=== PATIENT | female | born 1975 | race Caucasian/White ===

== ENCOUNTER 2016-06-14 14:48 | Emergency (ER) | payer OTHER ==
[2016-06-14 15:10] VITALS: BP 108/71
--- NOTE | 2016-06-14 15:46 | UC ---
HPI Wound/Suture Re-check - HPI Summary HPI Summary: Phuc, got 3 zoran in scalp at [facility] 06/03/16. Here for staple removal. - History Of Current Complaint Chief Complaint: UCSkin Stated Complaint: NEEDS ZORAN REMOVED Time Seen by Provider: 06/14/16 15:14 Hx Obtained From: Patient Onset/Duration: Sudden Onset Severity: Mild Surgery Date: 06/03/16 - Allergies/Home Medications Allergies/Adverse Reactions: Allergies Allergy/AdvReac Type Severity Reaction Status Date / Time Cetirizine [From Zyrtec] Allergy Unknown Verified 09/29/15 08:30 Reaction Details Famotidine Allergy Unknown Verified 09/29/15 08:30 Reaction Details Lacosamide [From Vimpat] Allergy Unknown Verified 09/29/15 08:32 Reaction Details Lamotrigine Allergy Unknown Verified 09/29/15 08:30 Reaction Details Lansoprazole Allergy Unknown Verified 09/29/15 08:30 Reaction Details Omeprazole [From Prilosec] Allergy Unknown Verified 09/29/15 08:30 Reaction Details Ranitidine Allergy Unknown Verified 09/29/15 08:30 Reaction Details Sertraline [From Zoloft] Allergy Unknown Verified 09/29/15 08:30 Reaction Details PMH/Surg Hx/FS Hx/Imm Hx Neurological History Of: Reports: Seizures - Surgical History Surgical History: Yes Surgery Procedure, Year, and Place: vagal nerve stimulator x2 - Family History Known Family History: Positive: Unknown - Social History Occupation: Disabled Alcohol Use: None Substance Use Type: None Smoking Status (MU): Never Smoked Tobacco Review of Systems Constitutional: Negative Skin: Other - zoran L scalp Eyes: Negative ENT: Negative Respiratory: Negative Cardiovascular: Negative Gastrointestinal: Negative Genitourinary: Negative Motor: Negative Neurovascular: Negative Musculoskeletal: Negative Neurological: Negative Psychological: Negative All Other Systems Reviewed And Are Negative: Yes Physical Exam Triage Information Reviewed: Yes Appearance: No Pain Distress, Well-Nourished Vital Signs: Initial Vital Signs Temp 98.9 F 06/14/16 15:02 Pulse 98 06/14/16 15:02 Resp 16 06/14/16 15:02 BP 108/71 06/14/16 15:02 Pulse Ox 99 06/14/16 15:02 Vital Signs Reviewed: Yes Eye Exam: Other - pt unwilling to remove sunglasses ENT Exam: Normal ENT: Positive: Normal ENT inspection, Hearing grossly normal, Pharynx normal, TMs normal Dental Exam: Normal Neck exam: Normal Neck: Positive: Supple, Nontender, No Lymphadenopathy Respiratory Exam: Normal Respiratory: Positive: Chest non-tender, Lungs clear, Normal breath sounds, No respiratory distress, No accessory muscle use Cardiovascular Exam: Normal Cardiovascular: Positive: RRR, No Murmur Neurological: Positive: Alert Psychological Exam: Normal Skin Exam: Other - 3 zoran removed from scalp, pt jag well Course/Dx - Differential Dx - Laceration/Wound Provider Diagnoses: staple removal from scalp Discharge - Discharge Plan Condition: Stable Disposition: HOME Patient Education Materials: Stitches Removal (ED) Referrals: Melonie Kahn PA [Primary Care Provider] - Additional Instructions: You can resume bathing a washing hair like normal now. You should not have any ongoing problems from the cut on your head.
== END 2016-06-14 15:37 | disposition home or self-care (01) ==
LOC: UCCORT 14:48
DX: Z48.02 Encounter for removal of sutures (principal); Z88.8 Allergy status to other drugs, medicaments and biological substances
CPT/HCPCS: 99211; G0463

== ENCOUNTER 2017-08-24 19:40 | Emergency (ER) | payer OTHER ==
[2017-08-24 20:10] VITALS: BP 93/58
--- NOTE | 2017-08-24 20:37 | UC ---
Skin Complaint HPI - HPI Summary HPI Summary: Pt c/o erythematous, itchy, rash with scattered pustules on face X 2 weeks. Pt was seen at [facility] and given mupuricin ointment. NO improvement to candy. - History of Current Complaint Chief Complaint: UCSkin Time Seen by Provider: 08/24/17 20:30 Stated Complaint: RASH Hx Obtained From: Patient Hx Last Menstrual Period: none ?: No Onset/Duration: Sudden Onset, Lasting Weeks - 2, Still Present Skin Exposure Onset/Duration: Weeks Ago Timing: Constant Onset Severity: Moderate Current Severity: Moderate Pain Intensity: 0 Location: Face Character: Pruritus, Redness Aggravating Factor(s): Nothing Alleviating Factor(s): Nothing Associated Signs & Symptoms: Positive: Rash - Allergy/Home Medications Allergies/Adverse Reactions: Allergies Allergy/AdvReac Type Severity Reaction Status Date / Time cetirizine [From Zyrtec] Allergy Unknown Verified 08/24/17 20:43 Reaction Details famotidine Allergy Unknown Verified 08/24/17 20:43 Reaction Details lacosamide [From Vimpat] Allergy Unknown Verified 08/24/17 20:43 Reaction Details lamotrigine Allergy Unknown Verified 08/24/17 20:43 Reaction Details lansoprazole Allergy Unknown Verified 08/24/17 20:43 Reaction Details omeprazole Allergy Unknown Verified 08/24/17 20:43 Reaction Details ranitidine Allergy Unknown Verified 08/24/17 20:43 Reaction Details sertraline [From Zoloft] Allergy Unknown Verified 08/24/17 20:43 Reaction Details Home Medications: Home Medications lamoTRIgine TAB(*) [Lamictal TAB(*)] 300 mg PO BID 08/24/17 [History Confirmed 08/24/17] risperiDONE TAB* [Risperdal*] 3 mg PO BID 08/24/17 [History Confirmed 08/24/17] Review of Systems Constitutional: Negative Skin: Rash Eyes: Negative ENT: Negative Respiratory: Negative Cardiovascular: Negative Gastrointestinal: Negative Genitourinary: Negative Motor: Negative Neurovascular: Negative Musculoskeletal: Negative Neurological: Negative Psychological: Negative Is Patient Immunocompromised?: No All Other Systems Reviewed And Are Negative: Yes PMH/Surg Hx/FS Hx/Imm Hx Previously Healthy: Yes - Surgical History Surgical History: Yes Surgery Procedure, Year, and Place: vagal nerve stimulator x2 - Family History Known Family History: Positive: Unknown - Social History Lives: With Family Alcohol Use: None Substance Use Type: None Smoking Status (MU): Never Smoked Tobacco Have You Smoked in the Last Year: No Physical Exam Triage Information Reviewed: Yes Appearance: Well-Appearing Vital Signs: Initial Vital Signs Temp 99.0 F 08/24/17 20:05 Pulse 74 08/24/17 20:05 Resp 16 08/24/17 20:05 BP 93/58 08/24/17 20:05 Pulse Ox 99 08/24/17 20:05 Vital Signs Reviewed: Yes Eye Exam: Normal ENT: Positive: Hearing grossly normal Neck exam: Normal Respiratory Exam: Normal Respiratory: Positive: No respiratory distress Musculoskeletal Exam: Normal Neurological Exam: Normal Psychological Exam: Normal Skin Exam: Other - erythematous facila rash that is on chin, cheeksa and cross bridge of nose, dry flaky areas with scattered pustules. mild erythema Course/Dx - Differential Diagnoses - Skin Complaint Differential Diagnoses: Cellulitis, Other - lupus - Diagnoses Provider Diagnoses: rosacea Discharge - Sign-Out/Discharge Documenting (check all that apply): Discharge - Discharge Plan Condition: Stable Disposition: HOME Prescriptions: metroNIDAZOLE [Metronidazole 0.75 % gel] 1 applic TOPICAL Q12H #1 tube Patient Education Materials: Rosacea (ED) Referrals: Melonie Kahn PA [Primary Care Provider] - 08/30/17 Additional Instructions: Please follow up with your PCP as scheduled. - Billing Disposition and Condition Condition: STABLE Disposition: HOME
== END 2017-08-24 20:46 | disposition home or self-care (01) ==
LOC: UCCORT 19:40
DX: L71.9 Rosacea, unspecified (principal); Z88.8 Allergy status to other drugs, medicaments and biological substances
CPT/HCPCS: 99212; G0463

== ENCOUNTER 2017-11-29 20:51 | Emergency (ER) | payer OTHER ==
--- NOTE | 2017-11-29 21:09 | UC ---
Upper Extremity HPI - HPI Summary HPI Summary: On 11/13/17, patient reports that she fell as a result of A seizure and injured her left elbow area. She was seen in the [place] emergency room and diagnosed with a fracture in her elbow area. She states they applied a splint to the back of her arm. She has followed up with Dr. Rosario the orthopedist 3 times since then. Her last visit with Dr. Rosario was today. She and her male Computer Art Instructor Present this evening with concern for ongoing swelling to her left hand. She states that she told Dr. Rosario; however, he was not concerned. She states that he did instruct her to open and close the hand. She denies any numbness or tingling to the hand. She does offer that she broke the fourth and fifth fingers some time ago and as a result both always bent. Patient goes on and off for that Dr. Rosario did remove the rishabh wrap and splint to look at her arm during today's visit. He also reapplied the splint and wrap. - History of Current Complaint Hx Obtained From: Patient, Family/Chief Radiologic Technologist Hx Last Menstrual Period: none Onset/Duration: Gradual Onset Alleviating Factor(s): Nothing <Galina Dennis - Last Filed: 11/29/17 21:38> <Issac Hurd - Last Filed: 11/29/17 22:02> - History of Current Complaint Stated Complaint: DRESSING/SPLIT CHECK Time Seen by Provider: 11/29/17 21:02 - Allergies/Home Medications Allergies/Adverse Reactions: Allergies Allergy/AdvReac Type Severity Reaction Status Date / Time cetirizine [From Zyrtec] Allergy Unknown Verified 08/24/17 20:43 Reaction Details famotidine Allergy Unknown Verified 08/24/17 20:43 Reaction Details lacosamide [From Vimpat] Allergy Unknown Verified 08/24/17 20:43 Reaction Details lamotrigine Allergy Unknown Verified 08/24/17 20:43 Reaction Details lansoprazole Allergy Unknown Verified 08/24/17 20:43 Reaction Details omeprazole Allergy Unknown Verified 08/24/17 20:43 Reaction Details ranitidine Allergy Unknown Verified 08/24/17 20:43 Reaction Details sertraline [From Zoloft] Allergy Unknown Verified 08/24/17 20:43 Reaction Details Home Medications: Home Medications Ibuprofen 600 mg PO Q8H 11/29/17 [History Confirmed 11/29/17] PMH/Surg Hx/FS Hx/Imm Hx - Additional Past Medical History Additional PMH: mild MR. Neurological History: Seizures Psychological History: Anxiety - Surgical History Surgical History: Yes Surgery Procedure, Year, and Place: vagal nerve stimulator x2 - Family History Known Family History: Positive: Unknown - Social History Lives: With Family Alcohol Use: None Substance Use Type: None Smoking Status (MU): Never Smoked Tobacco Have You Smoked in the Last Year: No - Immunization History Vaccination Up to Date: Yes <Galina Dennis - Last Filed: 11/29/17 21:38> Review of Systems Constitutional: Negative Skin: Negative Eyes: Negative ENT: Negative Respiratory: Negative Cardiovascular: Negative Gastrointestinal: Negative Genitourinary: Negative Motor: Negative Neurovascular: Negative Musculoskeletal: Edema - L hand Neurological: Negative Psychological: Negative Is Patient Immunocompromised?: No All Other Systems Reviewed And Are Negative: Yes <Galina Dennis - Last Filed: 11/29/17 21:38> Physical Exam Triage Information Reviewed: Yes Appearance: Well-Appearing Vital Signs Reviewed: Yes Eyes: Positive: Conjunctiva Clear ENT: Positive: Normal ENT inspection Neck: Positive: Supple, Nontender Respiratory: Positive: Lungs clear, Normal breath sounds Cardiovascular: Positive: RRR, No Murmur Abdomen Description: Positive: Nontender, No Organomegaly, Soft Bowel Sounds: Positive: Present Musculoskeletal: Positive: Other: - Left upper extremity exam: The arm is in a sling and a long posterior splint. Splint is held in place with an Rishabh wrap. All 5 digits of the hand are visible. There is chronic flexion deformity to the fourth and fifth fingers as noted in the history of present illness. All the digits plus volar and dorsal surfaces of the hand have mild swelling. The tips of all fingers have gross sensory function and capillary Refill of less than 2 seconds. Patient is able to flex and extend thumb index and middle finger without difficulty. She has a strong radial pulse as well. There is no tenderness to the hand and active range of motion to the fingers is painless. There is no warmth or eythema. The rishabh is snug but not tight. Neurological: Positive: Alert Psychological: Positive: Normal Response To Family Skin Exam: Normal <Galina Dennis - Last Filed: 11/29/17 21:38> Vital Signs: Initial Vital Signs Temp 99.2 F 11/29/17 21:00 Pulse 82 11/29/17 21:00 Resp 18 11/29/17 21:00 BP 99/63 11/29/17 21:00 Pulse Ox 99 11/29/17 21:00 <Issac Hurd - Last Filed: 11/29/17 22:02> Upper Extremity Course/Dx - Course Course Of Treatment: Were able to obtain the ER record from her initial visit. The record documents a comminuted distal humerus fracture. the exam is c/w edema likely from immobilization and fx combination. there is no concern for compartment syndrom or dvt or infection. there is no indication to removed the splint. need for active rom to the hand and proper sling placement has been reinforced. pt has f/u in 1 week but was advised to f/u sooner for any changes or concerns. - Differential Dx/Diagnosis Provider Diagnoses: Dorsal hand edema. <Galina Dennis - Last Filed: 11/29/17 21:38> Discharge - Sign-Out/Discharge Documenting (check all that apply): Discharge/Admit/Transfer - Billing Disposition and Condition Condition: STABLE Disposition: Home <Galina Dennis - Last Filed: 11/29/17 21:38> - Billing Disposition and Condition Condition: STABLE Disposition: Home <Issac Hurd - Last Filed: 11/29/17 22:02> - Discharge Plan Condition: Stable Disposition: HOME Patient Education Materials: How to Use a Sling (ED), Splint Care (ED) Referrals: Melonie Kahn PA [Primary Care Provider] - If Needed Ankur Rosario MD [Medical Doctor] - Additional Instructions: FOLLOW UP DR ROSARIO IN 1 WEEK SCHEDULED. FOLLOW UP SOONER FOR ANY CONCERNS. TAKE THE TIME TO OPEN AND CLOSE YOUR LEFT HAND EVERY HOUR WHILE AWAKE. Per institutional requirements, I have reviewed the chart, however, I was not consulted specifically or made aware of this patient by the above midlevel provider. I did not personally evaluate, interact with , or disposition this patient.
[2017-11-29 21:11] VITALS: BP 99/63
== END 2017-11-29 21:44 | disposition home or self-care (01) ==
LOC: UCCORT 20:51
DX: R60.9 Edema, unspecified (principal); Z88.8 Allergy status to other drugs, medicaments and biological substances; F70 Mild intellectual disabilities
CPT/HCPCS: 99211; G0463

== ENCOUNTER 2018-01-26 18:41 | Emergency (ER) | payer OTHER ==
[2018-01-26 19:17] VITALS: BP 96/66
--- NOTE | 2018-01-26 19:33 | UC ---
Complaint Female HPI - HPI Summary HPI Summary: Pt presents with concern for vaginal bleeding. Pt states that she has been menopausal for nearly 14 years and is concerned that she saw blood on toilet paper after wiping after voiding. Pt denies urinary symptoms of frequency, urgency and dysuria. - History Of Current Complaint Chief Complaint: UCGeneralIllness Stated Complaint: PERSONAL Time Seen by Provider: 01/26/18 18:52 Hx Obtained From: Patient Hx Last Menstrual Period: states menopause since 30's ?: No Onset/Duration: Sudden Onset, Lasting Hours Timing: Intermittent Severity Initially: Mild Severity Currently: None Pain Intensity: 0 Aggravating Factor(s): Urination Alleviating Factor(s): Nothing Associated Signs And Symptoms: Positive: Negative - Risk Factors Ectopic Risk Factor: Negative Ovarian Torsion Risk Factor: Negative - Allergies/Home Medications Allergies/Adverse Reactions: Allergies Allergy/AdvReac Type Severity Reaction Status Date / Time cetirizine [From Zyrtec] Allergy Unknown Verified 01/26/18 19:01 Reaction Details famotidine Allergy Unknown Verified 01/26/18 19:01 Reaction Details lacosamide [From Vimpat] Allergy Unknown Verified 01/26/18 19:01 Reaction Details lamotrigine Allergy Unknown Verified 01/26/18 19:01 Reaction Details lansoprazole Allergy Unknown Verified 01/26/18 19:01 Reaction Details omeprazole Allergy Unknown Verified 01/26/18 19:01 Reaction Details ranitidine Allergy Unknown Verified 01/26/18 19:01 Reaction Details sertraline [From Zoloft] Allergy Unknown Verified 01/26/18 19:01 Reaction Details Home Medications: Home Medications Loratadine 1 cap DAILY 01/26/18 [History Confirmed 01/26/18] PMH/Surg Hx/FS Hx/Imm Hx Previously Healthy: Yes Neurological History: Seizures - Surgical History Surgical History: Yes Surgery Procedure, Year, and Place: vagal nerve stimulator x2 - Family History Known Family History: Positive: Unknown - Social History Lives: With Family Alcohol Use: None Substance Use Type: None Smoking Status (MU): Never Smoked Tobacco Have You Smoked in the Last Year: No - Immunization History Most Recent Tetanus Shot: UTD Vaccination Up to Date: Yes Review of Systems Constitutional: Negative Skin: Negative Eyes: Negative ENT: Negative Respiratory: Negative Cardiovascular: Negative Gastrointestinal: Negative Genitourinary: Hematuria Motor: Negative Neurovascular: Negative Musculoskeletal: Negative Neurological: Negative Psychological: Negative Is Patient Immunocompromised?: No All Other Systems Reviewed And Are Negative: Yes Physical Exam Triage Information Reviewed: Yes Appearance: Well-Appearing Vital Signs: Initial Vital Signs Temp 98.2 F 01/26/18 19:04 Pulse 75 01/26/18 19:04 Resp 16 01/26/18 19:04 BP 96/66 01/26/18 19:04 Pulse Ox 100 01/26/18 19:04 Vital Signs Reviewed: Yes Eye Exam: Normal ENT: Positive: Hearing grossly normal Respiratory Exam: Normal Respiratory: Positive: Normal breath sounds Cardiovascular Exam: Normal Abdominal Exam: Normal Abdomen Description: Positive: Nontender Musculoskeletal Exam: Normal Neurological Exam: Normal Psychological Exam: Normal Skin Exam: Normal Complaint Female Dx - Differential Dx/Diagnosis Differential Diagnosis/HQI/PQRI: Urinary Tract Infection Provider Diagnoses: UTI Discharge - Sign-Out/Discharge Documenting (check all that apply): Patient Departure All imaging exams completed and their final reports reviewed: No Studies - Discharge Plan Condition: Stable Disposition: HOME Prescriptions: Cephalexin CAP* [Keflex 500 CAP*] 500 mg PO Q8H #21 cap Patient Education Materials: Urinary Tract Infection in Women (ED) Referrals: Melonie Kahn PA [Primary Care Provider] - As Soon As Possible - Billing Disposition and Condition Condition: STABLE Disposition: Home
--- NOTE | 2018-01-29 08:29 | UC ---
- Progress Note Progress Note: Final urine culture negative. Patient on keflex. Please inform patient of the results and she can stop the antibiotics. Discharge - Sign-Out/Discharge Documenting (check all that apply): Post-Discharge Follow Up All imaging exams completed and their final reports reviewed: No Studies - Discharge Plan Condition: Stable Disposition: HOME Prescriptions: Cephalexin CAP* [Keflex 500 CAP*] 500 mg PO Q8H #21 cap Patient Education Materials: Urinary Tract Infection in Women (ED) Referrals: Melonie Kahn PA [Primary Care Provider] - As Soon As Possible - Billing Disposition and Condition Condition: STABLE Disposition: Home
== END 2018-01-26 19:41 | disposition home or self-care (01) ==
LOC: UCCORT 18:41
DX: N39.0 Urinary tract infection, site not specified (principal); Z88.8 Allergy status to other drugs, medicaments and biological substances
CPT/HCPCS: 81003; 87086; 99212; G0463

== ENCOUNTER 2018-09-29 16:48 | Emergency (ER) | payer OTHER ==
--- OUTSIDE RECORDS SUMMARY | 2018-09-29 16:56 | XMS REPORT | Continuity of Care Document ---
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 Melonie [place], [place] Onset: 08/31/2018 Note: found to be partial seizures 07/2015 Allergic rhinitis Melonie [place], [place] Onset: 08/31/2018 Cyst of ovary Melonie [place], [place] Onset: 08/31/2018 Abnormal cervical Papanicolaou smear Melonie [place], [place] Onset: 08/31/2018 Note: HPV ~2010 Pernicious anemia Melonie [place], [place] Onset: 08/31/2018 or effect of maternal use of Melonie [place], [place] Onset: 08/31 alcohol Acute gastritis Melonie [place], [place] Onset: 08/31/2018 Methicillin resistant Staphylococcus aureus Melonie [place], [place] Onset: 08/31 infection Urolithiasis Melonie [place], [place] Onset: 08/31/2018 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[place], [place]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, noted on 08/30/14 CT Degenerative joint disease involving multiple Melonie [place], [place] Onset: joints Note: cervical/dorsal spine Premature ovarian failure Melonie [place], [place] Onset: 08/31/2018 Note: ~2010 Constipation Melonie [place], [place] Onset: 08/31/2018 Alkaline phosphatase raised [place] Hahn Onset: 08/31/2018 Note: noted 2015 Family History Date Family Member(s) Observation Comments Mother Chronic Obstructive Pulmonary Disease (COPD) Mother Alcoholism Social History Type Date Description Comments Sex Unknown Marital Status Lives With Ground Support Agent-Pedro Stout (Gildardo) Diet Patient follows No dietary restrictions 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 ETOH Use Denies alcohol use Tobacco Use Start: Unknown Patient has never smoked Smoking Status Reviewed: 09/20/18 Patient has never smoked Allergies, Adverse Reactions, Alerts Active Allergies Reaction Severity Comments Date Zoloft 09/20/2018 Prilosec Thinks she is allergic 09/20/2018 Sulfa Antibiotics reaction as a child 09/20/2018 Lisinopril 09/20/2018 Vimpat 09/20/2018 Zyrtec 09/20/2018 Ranitidine 09/20/2018 Ciprofloxacin increases seizure activity 09/20/2018 Medications Active Medications SIG Qnty Indications Ordering Date Provider Amitiza 1 cap by mouth 60caps K59.00 Tj 09/20/2018 24mcg Capsules twice a day for MD Abel constipation Klor-Con Sprinkle 2 caps by mouth 120caps Tj 08/30/2018 10Meq bid MD Abel Capsules ER Loratadine 1 by mouth every 30tabs Tj 08/30/2018 10mg Tablets day for MD Abel cough/congestion Famotidine 1 tab by mouth 60tabs Tj 08/30/2018 20mg Tablets twice a day MD Abel Tacrolimus Thin layer to face Everton Fink 0.1% Ointment one-two times a A., MS, PA-C day Dicyclomine HCL Take One Capsule Unknown 10mg By Mouth Every 6 Capsules Hours as Needed For Abdominal Pain Spasm Fludrocortisone take two tablets 120tabs Tj Acetate by mouth twice a MD Abel 0.1mg Tablets day Phenobarbital Take 2 Tablets By Unknown 64.8mg Mouth Nightly Tablets Maximum Daily Dose Two Tablets Lamotrigine ER 1 tab by mouth Neurology 250mg twice a day Clinics/Patient Tablets ER 24HR s Lamotrigine 1 tab by mouth at Neurology 100mg Tablets bedtime Clinics/Patient s Risperidone 1 tab by mouth Neurology 1mg Tablets twice a day Clinics/Patient Dispers s History Medications Amoxicillin Take One Capsule By Unknown - 500mg Capsules Mouth Three Times A 09/20/2018 Day Nitrofurantoin Take One Capsule By Unknown - Monohydrate/Macrocrystals Mouth Twice A Day 09/20/2018 100mg Capsules Doxycycline Hyclate Take One Tablet By Unknown - 100mg Mouth Every Day as 09/20/2018 Tablets Directed Hydrocodone-Acetaminophen Take One Tablet By Unknown - Mouth Twice A Day 09/20/2018 5-325mg Tablets For Pain Maximum Daily Dose Two Tablets Lorazepam Unknown - 1mg Tablets 09/20/2018 Lamotrigine Unknown - 200mg Tablets 09/20/2018 Cephalexin Unknown - 500mg Capsules 09/20/2018 Metronidazole Apply Thin Film Unknown - 0.75% Cream Once Daily 09/20/2018 Ibuprofen Take One Tablet By Unknown - 600mg Tablets Mouth Three Times A 09/20/2018 Day And as Needed For Pain SM Blood Pressure Use For Daily Blood Unknown - Monitor/Fully Automatic Pressure Check 09/20/2018 Device Erica Simon MD - 10GM/15ML Solution 09/20/2018 Doxycycline Hyclate Everton Fink, - 50mg CAROLA TRUJILLO 09/20/2018 Capsules Immunizations Description No Information Available Vital Signs Date Vital Result Comment 09/20/2018 12:57pm Weight 144.00 lb Heart Rate 116 /min BP Systolic 90 mmHg BP Diastolic 72 mmHg Body Temperature 99.0 F O2 % BldC Oximetry 97 % Results Description No Information Available Procedures Date Code Description Status 08/10/2017 [id number] Mammogram Completed Encounters Description No Information Available Plan of Treatment Future Appointment(s):10/18/2018 1:00 pm - [place] [facility] at [facility]09/20/2018 - Melonie Kahn PAI95.0 Idiopathic hypotensionComments: Current treatment: Fludrocortisone 0.1 mg 2 tablets twice a dayHas started evaluation with [id number] HypokalemiaComments:Increase potassium to 2 capsules twice a dayFollow up:1 [id number] Constipation, unspecifiedNew Medication:Amitiza 24 mcg - 1 cap by mouth twice a day for constipationNew Labs: Ua Routine, Ordered: 09/20/18Culture Urine & Sensitvities, Ordered: G40.919 Epilepsy, unspecified, intractable, without status [id number] Dysuria
[2018-09-29 17:10] VITALS: BP 149/85
--- NOTE | 2018-09-29 17:47 | UC ---
Complaint Female HPI - HPI Summary HPI Summary: Pt presents with c/o urgency, frequency, and dysuria X 3-4 days. - History Of Current Complaint Chief Complaint: UCGU Stated Complaint: URINARY Time Seen by Provider: 09/29/18 17:05 Hx Obtained From: Patient Hx Last Menstrual Period: menopausal ?: No Onset/Duration: Lasting Days, Still Present Timing: Constant Severity Initially: Mild Severity Currently: Mild Pain Intensity: 2 Pain Scale Used: 0-10 Numeric Character: Dull, Burning Aggravating Factor(s): Urination - Risk Factors Ectopic Risk Factor: Negative Ovarian Torsion Risk Factor: Negative - Allergies/Home Medications Allergies/Adverse Reactions: Allergies Allergy/AdvReac Type Severity Reaction Status Date / Time cetirizine [From Zyrtec] Allergy Unknown Verified 09/29/18 17:02 Reaction Details famotidine Allergy Unknown Verified 09/29/18 17:02 Reaction Details lacosamide [From Vimpat] Allergy Unknown Verified 09/29/18 17:02 Reaction Details lansoprazole Allergy Unknown Verified 09/29/18 17:02 Reaction Details omeprazole Allergy Unknown Verified 09/29/18 17:02 Reaction Details ranitidine Allergy Unknown Verified 09/29/18 17:02 Reaction Details sertraline [From Zoloft] Allergy Unknown Verified 09/29/18 17:02 Reaction Details Sulfa (Sulfonamide Allergy Unknown Verified 09/29/18 17:02 Antibiotics) Reaction Details Home Medications: Home Medications Potassium Chlor TAB* [Klor Con ER TAB*] 10 meq PO BID 09/29/18 [History Confirmed 09/29/18] PMH/Surg Hx/FS Hx/Imm Hx Previously Healthy: Yes - Surgical History Surgical History: Yes Surgery Procedure, Year, and Place: vagal nerve stimulator x2 - Family History Known Family History: Positive: Unknown - Social History Occupation: Disabled Lives: With Family Alcohol Use: None Substance Use Type: None Smoking Status (MU): Never Smoked Tobacco Have You Smoked in the Last Year: No - Immunization History Most Recent Tetanus Shot: UTD Vaccination Up to Date: Yes Review of Systems All Other Systems Reviewed And Are Negative: Yes Constitutional: Positive: Fever Skin: Positive: Negative Eyes: Positive: Negative ENT: Positive: Negative Respiratory: Positive: Negative Cardiovascular: Positive: Negative Gastrointestinal: Positive: Negative Genitourinary: Positive: Dysuria, Frequency, Urgency Motor: Positive: Negative Neurovascular: Positive: Negative Musculoskeletal: Positive: Negative Neurological: Positive: Negative Psychological: Positive: Negative Is Patient Immunocompromised?: No Physical Exam Triage Information Reviewed: Yes Appearance: Well-Appearing Vital Signs: Initial Vital Signs Temp 98.7 F 09/29/18 17:05 Pulse 96 09/29/18 17:05 Resp 16 09/29/18 17:05 BP 149/85 09/29/18 17:05 Pulse Ox 98 09/29/18 17:05 Vital Signs Reviewed: Yes Eye Exam: Normal ENT Exam: Normal Dental Exam: Normal Neck exam: Normal Respiratory Exam: Normal Cardiovascular Exam: Normal Abdominal Exam: Normal Abdomen Description: Positive: Nontender Musculoskeletal Exam: Normal Neurological Exam: Normal Psychological Exam: Normal Skin Exam: Normal Complaint Female Dx - Differential Dx/Diagnosis Differential Diagnosis/HQI/PQRI: Urinary Tract Infection Provider Diagnosis: UTI (urinary tract infection) Discharge - Sign-Out/Discharge Documenting (check all that apply): Patient Departure All imaging exams completed and their final reports reviewed: No Studies - Discharge Plan Condition: Stable Disposition: HOME Prescriptions: Cephalexin CAP* [Keflex 500 CAP*] 500 mg PO Q8H #21 cap Phenazopyridine 200 mg (NF) [Pyridium 200 MG tab *] 200 mg PO Q8H #3 tab Patient Education Materials: Urinary Tract Infection in Women (ED) Referrals: Melonie Kahn PA [Primary Care Provider] - If Needed - Billing Disposition and Condition Condition: STABLE Disposition: Home
--- NOTE | 2018-10-02 07:45 | UC ---
- Progress Note Progress Note: urine no growth - final please call pt - if sx improve, complete course recommend PCP recheck claudia 10/02/18 Course/Dx - Diagnoses Provider Diagnoses: UTI (urinary tract infection) Discharge - Sign-Out/Discharge Documenting (check all that apply): Patient Departure All imaging exams completed and their final reports reviewed: No Studies - Discharge Plan Condition: Stable Disposition: HOME Prescriptions: Cephalexin CAP* [Keflex 500 CAP*] 500 mg PO Q8H #21 cap Phenazopyridine 200 mg (NF) [Pyridium 200 MG tab *] 200 mg PO Q8H #3 tab Patient Education Materials: Urinary Tract Infection in Women (ED) Referrals: Melonie Kahn PA [Primary Care Provider] - If Needed - Billing Disposition and Condition Condition: STABLE Disposition: Home
== END 2018-09-29 17:36 | disposition home or self-care (01) ==
LOC: UCCORT 16:48
DX: N39.0 Urinary tract infection, site not specified (principal); Z88.2 Allergy status to sulfonamides; Z88.8 Allergy status to other drugs, medicaments and biological substances
CPT/HCPCS: 81003; 87077; 87086; 99212; G0463